=== PATIENT | male | born 1960 | race Caucasian/White ===

== ENCOUNTER 2021-07-21 17:32 | Emergency (ER) | payer BC ==
[~2021-07-21] VITALS: Ht 188 cm; Wt 99.9 kg
[2021-07-21 17:34] VITALS: BP 142/96
[2021-07-21] MEDS ORDERED: DIPH,PERTUSS(ACELL),TET VAC/PF 0.5 ML IM-VACC ONE ×2 (18:30→20:07)
[2021-07-21] MEDS ORDERED: BACITRACIN ZINC OINT 500U/GM, 0.9 GM ONE (19:41)
== END 2021-07-21 20:49 | disposition home or self-care (01) ==
LOC: ED 20:45
DX: S81.811A Laceration without foreign body, right lower leg, initial encounter (principal); W26.9XXA Contact with unspecified sharp object(s), initial encounter; Y93.89 Activity, other specified; Y92.89 Other specified places as the place of occurrence of the external cause; Y99.8 Other external cause status
CPT/HCPCS: 12001; 90471; 90715; 99283